=== PATIENT | male | born 1975 | race African-American/Black ===

== ENCOUNTER 2016-05-22 16:26 | Emergency (ER) | payer OTHER ==
[2016-05-22 16:52] VITALS: BP 111/71; PULSE 67; TEMP 98; BMI 26.6
[2016-05-22] MEDS ORDERED: KETOROLAC TROMETHAMINE 60 MG/2 ML VIAL IM ONE (17:31)
[2016-05-22] MEDS ORDERED: KETOROLAC TROMETHAMINE 60 MG/2 ML VIAL ONE (17:35)
--- NOTE | 2016-05-22 17:38 | PDOC ---
History of Present Illness - General Chief Complaint: Pain Stated Complaint: FOOT PAIN Time Seen by Provider: 05/22/16 17:02 History Source: Patient Exam Limitations: No Limitations - History of Present Illness Initial Comments: 05/22/16 17:32 CC CONTINUED PAIN TO SITE OF LEFT FOOT SITE OF NOVEMBER FRACTURE SURGICAL REPAIR Occurred: reports: other Severity: reports: moderate Pain Location: reports: lower extremity Method of Injury: Yes: other (OLD SURGERY) Past History - Past Medical History Allergies/Adverse Reactions: Allergies Allergy/AdvReac Type Severity Reaction Status Date / Time No Known Allergies Allergy Verified 04/03/16 05:24 Home Medications: Ambulatory Orders NK [No Known Home Medication] 05/22/16 Anemia: No Asthma: No Cancer: No Cardiac Disorders: No CVA: No COPD: No CHF: No Dementia: No Diabetes: No GI Disorders: No Disorders: No HTN: No Hypercholesterolemia: No Liver Disease: No Seizures: No Thyroid Disease: No - Immunization History Immunization Up to Date: Yes (no flu shot) - Psycho/Social/Smoking Cessation Hx Anxiety: No Suicidal Ideation: No Smoking Status: No Smoking History: Current some day smoker Have you smoked in the past 12 months: Yes Number of Cigarettes Smoked Daily: 2 Information on smoking cessation initiated: No Hx Alcohol Use: No Drug/Substance Use Hx: No Substance Use Type: None Trauma Specific PMHX - Complaint Specific PMHX Back Injury: No Neck Injury: No Review of Systems - Review of Systems Constitutional: No: Symptoms Reported, Chills, Fever, Malaise Respiratory: Yes: Cough Musculoskeletal: Yes: Joint Swelling, Joint Stiffness Integumentary: No: Bruising, Erythema, Rash Neurological: No: Numbness, Paresthesia, Tingling, Other *Physical Exam - Vital Signs Last Vital Signs Temp Pulse Resp BP Pulse Ox 98 F 67 20 111/71 99 05/22/16 16:47 05/22/16 16:47 05/22/16 16:47 05/22/16 16:47 05/22/16 16:47 - Physical Exam General Appearance: Yes: Appropriately Dressed. No: Apparent Distress Respiratory/Chest: positive: Lungs Clear, Normal Breath Sounds Integumentary: positive: Other (TENDER TO AREA). negative: Cyanotic, Erythema, Rash, Ecchymosis, Bruising Neurologic: positive: Other (n/v INTACT). 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
== END 2016-05-22 17:44 | disposition home or self-care (01) ==
LOC: JERFT 16:26
PROC: 3E0233Z Introduction of Anti-inflammatory into Muscle, Percutaneous Approach (ICD-10-PCS; principal; 2016-05-22)
DX: G89.28 Other chronic postprocedural pain (principal); Z87.39 Personal history of other diseases of the musculoskeletal system and connective tissue; Z87.81 Personal history of (healed) traumatic fracture
CPT/HCPCS: 99281-25

== ENCOUNTER 2017-05-19 09:18 | Emergency (ER) | payer OTHER ==
[2017-05-19 09:30] VITALS: BP 130/74; PULSE 70; TEMP 97.3; BMI 22.8
[2017-05-19] MEDS ORDERED: IBUPROFEN 600 MG TABLET (FP) PO ONE ×2 (09:53→09:56)
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
== END 2017-05-19 10:03 | disposition home or self-care (01) ==
LOC: JERFT 09:18
DX: S00.83XA Contusion of other part of head, initial encounter (principal); S80.01XA Contusion of right knee, initial encounter; V43.52XA Car driver injured in collision with other type car in traffic accident, initial encounter; Y92.488 Other paved roadways as the place of occurrence of the external cause; Y93.89 Activity, other specified; Y99.8 Other external cause status
CPT/HCPCS: 99281-25

== ENCOUNTER 2017-11-15 03:21 | Emergency (ER) | payer OTHER ==
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
[2017-11-15 03:39] VITALS: BP 117/73; PULSE 80; TEMP 97.6; BMI 27.8
== END 2017-11-15 05:31 | disposition home or self-care (01) ==
LOC: JER 03:21
PROC: 0HQGXZZ Repair Left Hand Skin, External Approach (ICD-10-PCS; principal; 2017-11-15)
DX: S61.012A Laceration without foreign body of left thumb without damage to nail, initial encounter (principal); Y35.491A Legal intervention involving other sharp objects, law enforcement official injured, initial encounter; Y93.89 Activity, other specified; Y92.89 Other specified places as the place of occurrence of the external cause; Y99.0 Civilian activity done for income or pay
CPT/HCPCS: 73130-TC-LR-FY; 73130-TC-RT-FY; 73560-TC-LT-FY; 99281-25

== ENCOUNTER 2017-11-25 14:49 | Emergency (ER) | payer OTHER ==
[2017-11-25 14:53] VITALS: BP 136/74; PULSE 79; TEMP 98.8; BMI 25.1
--- NOTE | 2017-11-25 15:23 | PDOC ---
History of Present Illness - General Chief Complaint: Suture/Staple Removal(Here) Stated Complaint: SUTURE REMOVAL Time Seen by Provider: 11/25/17 15:05 History Source: Patient Exam Limitations: Clinical Condition - History of Present Illness Initial Comments: 11/25/17 15:24 Patient presents for evaluation of laceration the left thumb require suture placement a week ago. Patient reported wound is healing well area patient reports free range of motion of thumb. Patient also reports thorough with persistent right wrist pain since last visit he had x-ray of the wrist showed no pathology. patient reports pain is worse when he moves the wrist or does work with his wrists. Timing/Duration: 1 week Severity: mild Past History - Past Medical History Allergies/Adverse Reactions: Allergies Allergy/AdvReac Type Severity Reaction Status Date / Time No Known Allergies Allergy Verified 11/25/17 14:50 Home Medications: Ambulatory Orders Arm Brace [Wrist Brace] 1 each MC DAILY #1 each 11/25/17 Anemia: No Asthma: No Cancer: No Cardiac Disorders: No CVA: No COPD: No CHF: No DVT: No Dementia: No Diabetes: No GI Disorders: No Disorders: No HTN: No Hypercholesterolemia: No Liver Disease: No Seizures: No Thyroid Disease: No - Immunization History Immunization Up to Date: Yes (no flu shot) - Suicide/Smoking/Psychosocial Hx Smoking Status: No Smoking History: Current some day smoker Have you smoked in the past 12 months: Yes Number of Cigarettes Smoked Daily: 2 Information on smoking cessation initiated: Yes 'Breaking Loose' booklet given: 11/25/17 Hx Alcohol Use: No Drug/Substance Use Hx: No Substance Use Type: None Review of Systems - Review of Systems Able to Perform ROS?: Yes Comments:: 11/25/17 15:26 CONSTITUTIONAL: Absent: fever, chills, diaphoresis, generalized weakness, malaise, loss of appetite HEENT: Absent: rhinorrhea, nasal congestion, throat pain, throat swelling, difficulty swallowing, mouth swelling, ear pain, eye pain, visual Changes CARDIOVASCULAR: Absent: chest pain, syncope, palpitations, irregular heart rate, peripheral edema RESPIRATORY: Absent: cough, shortness of breath, dyspnea with exertion, orthopnea, wheezing, stridor, hemoptysis GASTROINTESTINAL: Absent: abdominal pain, abdominal distension, nausea, vomiting, diarrhea, constipation, melena, hematochezia GENITOURINARY: Absent: dysuria, frequency, urgency, hesitancy, hematuria, flank pain, genital pain MUSCULOSKELETAL: mild pain to right wrist. Absent: myalgia, arthralgia, joint swelling SKIN: Well-healing wound to the fifth thumb no redness to the area Absent: rash, itching, pallor HEMATOLOGIC/IMMUNOLOGIC: Absent: easy bleeding, easy bruising, lymphadenopathy, frequent infections ENDOCRINE: Absent: unexplained weight gain, unexplained weight loss, heat intolerance, cold intolerance NEUROLOGIC: Absent: headache, focal weakness or paresthesias, dizziness, unsteady gait, seizure, mental status changes, bladder or bowel incontinence PSYCHIATRIC: Absent: anxiety, depression, suicidal or homicidal ideation, hallucinations. Is the patient limited Tamazight proficient: No *Physical Exam - Vital Signs Last Vital Signs Temp Pulse Resp BP Pulse Ox 98.8 F 79 18 136/74 100 11/25/17 14:50 11/25/17 14:50 11/25/17 14:50 11/25/17 14:50 11/25/17 14:50 - Physical Exam Comments: 11/25/17 15:27 GENERAL: Well developed, well nourished. Awake and alert. No acute distress. HEENT: Normocephalic, atraumatic. PERRLA, EOMI. No conjunctival pallor. Sclera are non- icteric. Moist mucous membranes. Oropharynx is clear. NECK: Supple. Full ROM. No JVD. Carotid pulses 2+ and symmetric, without bruits. No thyromegaly. No lymphadenopathy. CARDIOVASCULAR: Regular rate and rhythm. No murmurs, rubs, or gallops. Distal pulses are 2+ and symmetric. PULMONARY: No evidence of respiratory distress. Lungs clear to auscultation bilaterally. No wheezing, rales or rhonchi. ABDOMINAL: Soft. Non-tender. Non-distended. No rebound or guarding. No organomegaly. Normoactive bowel sounds. MUSCULOSKELETAL Normal range of motion at all joints. No bony deformities or tenderness. No CVA tenderness. EXTREMITIES: No cyanosis. No clubbing. No edema. No calf tenderness. SKIN: well healed 1cm laceration to plantar side of left thumb. no erythemema to area. No drainage from wound site. No evidence of dehiscence of wound Warm and dry. Normal capillary refill. No rashes. No jaundice. NEUROLOGICAL: Alert, awake, appropriate. Cranial nerves 2-12 intact. No deficits to light touch and temperature in face, upper extremities and lower extremities. No motor deficits in the in face, upper extremities and lower extremities. Normoreflexic in the upper and lower extremities. Normal speech. Toes are down- going bilaterally. Gait is normal without ataxia. PSYCHIATRIC: Cooperative. Good eye contact. Appropriate mood and affect. General Appearance: Yes: Nourished, Appropriately Dressed. No: Apparent Distress Medical Decision Making - Medical Decision Making 11/25/17 15:29 patient presents for suture removal status post laceration of left thumb. No evidence of dehiscence or infection towards sites Wound healing well.patient also with right wrist pain likely due to right wrist strain. Patient stable for home discharge support *DC/Admit/Observation/Transfer Diagnosis at time of Disposition: Finger laceration Qualifiers: Encounter type: subsequent encounter Finger: thumb Damage to nail status: without damage Foreign body presence: without foreign body Laterality: left Qualified Code(s): S61.012D - Laceration without foreign body of left thumb without damage to nail, subsequent encounter Sprain of right wrist Qualifiers: Encounter type: subsequent encounter Qualified Code(s): S63.501D - Unspecified sprain of right wrist, subsequent encounter - Discharge Dispostion Disposition: HOME Condition at time of disposition: Stable Decision to Admit order: No - Prescriptions Prescriptions: Arm Brace [Wrist Brace] 1 each DAILY #1 each - Referrals - Patient Instructions - Post Discharge Activity
== END 2017-11-25 15:25 | disposition home or self-care (01) ==
LOC: JERFT 14:49
DX: S61.012D Laceration without foreign body of left thumb without damage to nail, subsequent encounter (principal); S63.502D Unspecified sprain of left wrist, subsequent encounter; Y35.811D Legal intervention involving manhandling, law enforcement official injured, subsequent encounter
CPT/HCPCS: 99281-25

== ENCOUNTER 2017-12-17 03:18 | Emergency (ER) | payer OTHER ==
[2017-12-17 03:57] VITALS: BP 119/74; PULSE 91; TEMP 98.5; BMI 27.4
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
== END 2017-12-17 04:57 | disposition home or self-care (01) ==
LOC: JER 03:18
DX: S63.501A Unspecified sprain of right wrist, initial encounter (principal); Y35.891A Legal intervention involving other specified means, law enforcement official injured, initial encounter; Y93.89 Activity, other specified; Y92.89 Other specified places as the place of occurrence of the external cause; Y99.0 Civilian activity done for income or pay; Z72.0 Tobacco use
CPT/HCPCS: 73110-TC-RT-FY; 73130-TC-RT-FY; 99283-25

== ENCOUNTER 2018-11-24 03:13 | Emergency (ER) | payer OTHER ==
[2018-11-24 03:40] VITALS: TEMP 98.3; BMI 28.0
--- NOTE | 2018-11-24 03:42 | PDOC ---
*Physical Exam - Vital Signs Last Vital Signs Temp Pulse Resp BP Pulse Ox 98.3 F 73 18 119/77 99 11/24/18 03:38 11/24/18 03:38 11/24/18 03:38 11/24/18 03:38 11/24/18 03:38 Medical Decision Making - Medical Decision Making 11/24/18 03:42 Patient seen by the advanced practice provider under my direct supervision. Ancillary testing reviewed as necessary. I agree with plan as outlined by the advanced practice provider. *DC/Admit/Observation/Transfer Diagnosis at time of Disposition: Knee pain - Discharge Dispostion Condition at time of disposition: Fair - Referrals - Patient Instructions - Post Discharge Activity
--- NOTE | 2018-11-24 03:57 | PDOC ---
History of Present Illness - General Chief Complaint: Pain, Acute Stated Complaint: INJURY-[employer] Time Seen by Provider: 11/24/18 03:39 History Source: Patient - History of Present Illness Initial Comments: 11/24/18 03:52 43 year old [employer] male c/o b/l knee pain fell to knees while in pursuit at work. patient sustained abrasions to both knees. no deformity, full rom able to weight bear 11/24/18 03:53 Past History - Past Medical History Allergies/Adverse Reactions: Allergies Allergy/AdvReac Type Severity Reaction Status Date / Time No Known Allergies Allergy Verified 11/24/18 03:40 Home Medications: Ambulatory Orders NK [No Known Home Medication] 12/17/17 Anemia: No Asthma: No Cancer: No Cardiac Disorders: No CVA: No COPD: No CHF: No DVT: No Dementia: No Diabetes: No GI Disorders: No Disorders: No HTN: No Hypercholesterolemia: No Liver Disease: No Seizures: No Thyroid Disease: No - Immunization History Immunization Up to Date: Yes (no flu shot) - Suicide/Smoking/Psychosocial Hx Smoking Status: No Smoking History: Never smoked Have you smoked in the past 12 months: No Number of Cigarettes Smoked Daily: 2 Information on smoking cessation initiated: No 'Breaking Loose' booklet given: 11/25/17 Hx Alcohol Use: Yes Drug/Substance Use Hx: No Substance Use Type: None Review of Systems - Review of Systems Able to Perform ROS?: Yes Is the patient limited Malay proficient: No Musculoskeletal: Yes: Other (knee pain) *Physical Exam - Vital Signs Last Vital Signs Temp Pulse Resp BP Pulse Ox 98.3 F 73 18 119/77 99 11/24/18 03:38 11/24/18 03:38 11/24/18 03:38 11/24/18 03:38 11/24/18 03:38 - Physical Exam General Appearance: Yes: Appropriately Dressed Extremity: positive: Normal Capillary Refill, Normal Inspection, Normal Range of Motion, Other (abrasions to both knees. no deformity / swelling. able to raise legs full rom) Integumentary: positive: Normal Color, Dry, Warm Neurologic: positive: Fully Oriented, Alert, Normal Mood/Affect Progress Note - Progress Note Progress Note: A: knee pain P: no xray tetanus up to date. *DC/Admit/Observation/Transfer Diagnosis at time of Disposition: Knee pain Qualifiers: Chronicity: acute Laterality: bilateral Qualified Code(s): M25.561 - Pain in right knee; M25.562 - Pain in left knee Contusion, knee Qualifiers: Encounter type: initial encounter Laterality: unspecified laterality Qualified Code(s): S80.00XA - Contusion of unspecified knee, initial encounter - Discharge Dispostion Disposition: HOME Condition at time of disposition: Fair - Referrals - Patient Instructions Printed Discharge Instructions: Contusion Additional Instructions: rest ice apply bacitracin to the abrasions. follow up in employee health as needed - Post Discharge Activity Forms/Work/School Notes: Back to Work
[2018-11-24 06:42] VITALS: BP 123/80; PULSE 75
== END 2018-11-24 04:30 | disposition home or self-care (01) ==
LOC: JER 03:13
DX: M25.561 Pain in right knee (principal); M25.562 Pain in left knee; S80.00XA Contusion of unspecified knee, initial encounter; Y35.891A Legal intervention involving other specified means, law enforcement official injured, initial encounter; Y93.89 Activity, other specified; Y92.410 Unspecified street and highway as the place of occurrence of the external cause; Y99.0 Civilian activity done for income or pay; Z72.0 Tobacco use
CPT/HCPCS: 99282-25

== ENCOUNTER 2020-06-03 09:03 | Emergency (ER) | payer BC, OTHER ==
[2020-06-03] MEDS ORDERED: IBUPROFEN 600 MG TABLET (FP) PO ONE ×2 (09:22→09:35)
[2020-06-03] MEDS ORDERED: LIDOCAINE 5% TOPICAL PATCH TP ONE (09:22)
[2020-06-03] MEDS ORDERED: METHOCARBAMOL 500 MG TABLET PO ONE (09:23)
[2020-06-03 09:31] VITALS: BP 156/89; PULSE 76; BMI 30.4
[2020-06-03] MEDS ORDERED: METHOCARBAMOL 500 MG TABLET ONE (09:34)
[2020-06-03] MEDS ORDERED: LIDOCAINE 5% TOPICAL PATCH ONE (09:35)
[2020-06-03 09:40] VITALS: TEMP 99.5
[2020-06-03 10:14] LABS: URINE MUCUS 1+
[2020-06-03] MEDS ORDERED: SODIUM CHLORIDE 0.9% 1000 ML INFUS.BAG IV ONE (10:21)
[2020-06-03 11:06] LABS: BASO % 4.6 % (0-2.0); EOS % 1.4 % (0-4.5); HEMATOCRIT 41.5 % (35.4-49); HEMOGLOBIN 13.9 GM/dl (11.7-16.9); LYMPH % 15.1 % (8-40); MCHC 33.5 g/dl (32.0-35.9); MEAN CELL VOLUME 83.6 fl (80-96); MEAN PLT VOLUME 8.4 fl (7.5-11.1); MONO % 3.3 % (3.8-10.2); NEUT % 75.6 % (42.8-82.8); PLATELET COUNT 247 K/MM3 (134-434); RBC 4.96 M/mm3 (4.00-5.60); RDW 11.7 % (11.9-15.9)
[2020-06-03 11:11] LABS: ACTIVATED PTT 26.3 SECONDS (25.2-36.5)
[2020-06-03 11:15] LABS: INR 1.26 (0.82-1.09); PROTHROMBIN TIME (PATIENT) 13.9 SEC (10.2-13.0)
[2020-06-03 12:27] LABS: POTASSIUM 4.2 mmol/L (3.5-5.1)
[2020-06-03 12:29] LABS: ALBUMIN 3.9 g/dl (3.4-5.0)
[2020-06-03 12:30] LABS: BLOOD UREA NITROGEN 16.5 mg/dL (7-18)
[2020-06-03 12:33] LABS: CREATININE 1.2 mg/dL (0.55-1.3)
[2020-06-03 12:34] LABS: BILIRUBIN,TOTAL 0.4 mg/dL (0.2-1)
[2020-06-03] MEDS ORDERED: LIDOCAINE PATCH REMOVAL MC SCH (22:00)
== END 2020-06-03 12:53 | disposition home or self-care (01) ==
LOC: FER 09:03
DX: M54.5 Low back pain (principal); V89.2XXA Person injured in unspecified motor-vehicle accident, traffic, initial encounter
CPT/HCPCS: 36415; 72131-TC; 74177-TC; 80053; 81003; 81015; 85025; 85610; 85730; 99285-25; Q9967

== ENCOUNTER 2021-06-15 05:57 | Emergency (ER) | payer OTHER ==
[2021-06-15 06:11] VITALS: BP 123/88; PULSE 64; TEMP 99; BMI 30.4
== END 2021-06-15 07:00 | disposition home or self-care (01) ==
LOC: FER 05:57
DX: S50.02XA Contusion of left elbow, initial encounter (principal); S62.102A Fracture of unspecified carpal bone, left wrist, initial encounter for closed fracture; W00.0XXA Fall on same level due to ice and snow, initial encounter
CPT/HCPCS: 73070-TC-LT-FY; 73110-TC-LT-FY; 99284-25

== ENCOUNTER 2021-12-28 06:39 | Emergency (ER) | payer OTHER ==
[2021-12-28 06:45] VITALS: BP 134/93; PULSE 73; RESP 16; TEMP 98.5; BMI 30.4
== END 2021-12-28 07:42 | disposition home or self-care (01) ==
LOC: FER 06:39
DX: S63.502A Unspecified sprain of left wrist, initial encounter (principal); X50.0XXA Overexertion from strenuous movement or load, initial encounter; W01.0XXA Fall on same level from slipping, tripping and stumbling without subsequent striking against object, initial encounter
CPT/HCPCS: 73110-TC-LT-FY; 99283-25

== ENCOUNTER 2024-09-21 00:05 | Emergency (ER) | payer OTHER ==
[2024-09-21 00:11] VITALS: BP 145/98; PULSE 80; RESP 18; TEMP 98; BMI 31.0
[2024-09-21] MEDS ORDERED: BACITRACIN ZINC 15 GM TUBE TOPICAL OINTMENT ONE (00:26)
[2024-09-21] MEDS ORDERED: ACETAMINOPHEN 500 MG TABLET (FP) ONE (00:28)
[2024-09-21] MEDS: BACITRACIN ZINC 15 GM TUBE TOPICAL OINTMENT TP ONE (00:36)
[2024-09-21] MEDS: ACETAMINOPHEN 500 MG TABLET (FP) PO ONE (00:37)
== END 2024-09-21 00:57 | disposition home or self-care (01) ==
LOC: JER 00:05
DX: S63.501A Unspecified sprain of right wrist, initial encounter (principal); S60.512A Abrasion of left hand, initial encounter; W18.30XA Fall on same level, unspecified, initial encounter
CPT/HCPCS: 73110-TC-LT-FY; 73110-TC-RT-FY; 73130-TC-LT-FY; 73130-TC-RT-FY; 99284-25